=== PATIENT | male | born 1990 | race Two or more races ===

== ENCOUNTER 2020-02-24 21:45 | Inpatient (IN) | payer OTHER ==
[~2020-02-24] VITALS: Ht 175.3 cm; Wt 108.9 kg
--- NOTE | 2020-02-24 23:20 | NUR ---
NURSE NOTES: PATIENT ARRIVED TO UNIT [facility]IA [facility] ON [facility] WITH 2 PERSONNEL; TRANSFERRED TO BED WITHOUT INCIDENT. AAOX4, VERBALLY RESPONSIVE AND ABLE TO MAKE NEEDS KNOWN. PLACED ON SNAKER AND CHANGED INTO YELLOW GOWN; PATIENT REFUSES YELLOW SOCKS AT THIS TIME, DESPITE BEING EDUCATED ON FALL PREVENTION. PATIENT NOTED TO AMBULATE WITH STEADY GAIT, NO COMPLAINTS OF DIZZINESS OR WEAKNESS. PATIENT COMPLAINS OF A MIGRAINE, IN WHICH HE RATES 7/10 PAIN; INFORMED PATIENT I WILL CONTACT HIS PRIMARY MD FOR ORDERS, AND PATIENT VERBALIZED UNDERSTANDING. BREATHING IS EVEN AND UNLABORED ON ROOM AIR, NO S/SX OF DISTRESS AT THIS TIME. IV SITE ON LEFT HAND PATENT, INTACT, ASYMPTOMATIC, AND SALINE-LOCKED. BED LOCKED AND IN LOWEST POSITION, SIDERAILS UP X 2. CALL LIGHT WITHIN REACH. WILL CONTINUE TO MONITOR FOR ANY CHANGES. Addendum: 02/25/20 at 0105 by Eva Lamb RN LIGHTS DIMMED AND HOB ELEVATED TO PROVIDE SOME COMFORT/PAIN RELIEF WHILE AWAITING ADMISSION ORDERS FROM DR. PEARSON.
[2020-02-24 23:30] VITALS: BP 136/81
[2020-02-24] MEDS ORDERED: METFORMIN HCL1000 M1 ORAL (23:36)
[2020-02-24] MEDS ORDERED: LOSARTAN POTAS100 MG ORAL (23:36)
[2020-02-24] MEDS ORDERED: GLIPIZIDE10 MG PO (23:36)
--- NOTE | 2020-02-24 23:44 | NUR ---
NURSE NOTES: CONTACTED DR. PEARSON FOR ADMISSION ORDERS. AWAITING CALL BACK.
--- NOTE | 2020-02-25 00:15 | NUR ---
NURSE NOTES: COMPLETED INVENTORY LIST WITH PATIENT. HAS A CELLPHONE IN HIS POSSESSION; NO DENTURES/HEARING AIDS/ASSISTIVE DEVICES/MEDICATIONS/WALLET. INVENTORY LIST SIGNED BY PATIENT.
--- NOTE | 2020-02-25 00:27 | NUR ---
NURSE NOTES: CONTACTED DR. PEARSON A SECOND TIME FOR ADMISSION ORDERS. AWAITING CALL BACK.
--- NOTE | 2020-02-25 00:55 | NUR ---
NURSE NOTES: CONTACTED DR. PEARSON A THIRD TIME REGARDING ADMISSION ORDERS. AWAITING CALL BACK. Addendum: 02/25/20 at 0125 by Eva Lamb RN MADE [employer]GE NURS[facility]OR[facility], AWARE THAT DR. PEARSON HAS NOT YET RETURNED CALLS.
[2020-02-25] MEDS ORDERED: Nitroglycerin Subl 0.4mg tab SL PRN (03:30)
[2020-02-25] MEDS: HYDROcodone/Acetamin 5/325 tab ORAL PRN (03:43)
[2020-02-25 04:00] VITALS: BP 126/77
--- NOTE | 2020-02-25 04:00 | NUR ---
NURSE NOTES: EKG TRACING DONE. PATIENT TOLERATED WELL.
--- NOTE | 2020-02-25 06:48 | NUR ---
NURSE NOTES: CALLED DOWN TO PHARMACY REGARDING INSULIN PEN; INSULIN PEN WILL BE READY IN 5 MINUTES FOR CUSTOMER SERVICE ADVISOR.
[2020-02-25] MEDS: NovoLOG Insulin Flexpen SUBQ SCH ×4 (06:56→21:10)
--- NOTE | 2020-02-25 07:33 | NUR ---
HAND-OFF: Report given to MARC VAUGHN. PATIENT IN STABLE CONDITION. PLAN OF CARE ENDORSED.
--- NOTE | 2020-02-25 07:47 | NUR ---
NURSE NOTES: Received pt from MARC Murphy. Pt A/O x4. No s/s of acute respiratory and cardiac distress. Pt c/o migraine 5/10 pain scale. No c/o chest pain. SL on right hand, patent and intact. Bed in low position, side rails up x2 and call light within reach. Will continue to monitor. Addendum: 02/25/20 at 0756 by Aurea Marlow RN Received report from MARC Velasquez.
[2020-02-25 08:00] VITALS: BP 132/86
[2020-02-25 08:43] LABS: BASOPHILS % (AUTO) 0.9 % (0.0-2.0); EOSINOPHILS % (AUTO) 1.6 % (0.0-3.0); HEMATOCRIT 47.4 % (42.0-52.0); HEMOGLOBIN 15.8 G/DL (14.2-18.0); LYMPHOCYTES % (AUTO) 50.6 % (20.0-45.0); MEAN CORPUSCULAR VOLUME 88 FL (80-99); MONOCYTES % (AUTO) 5.1 % (1.0-10.0); NEUTROPHILS % (AUTO) 41.8 % (45.0-75.0); PLATELET COUNT 281 K/UL (150-450); RED BLOOD COUNT 5.39 M/UL (4.70-6.10); RED CELL DISTRIBUTION WIDTH 11.1 % (11.6-14.8); WHITE BLOOD COUNT 7.8 K/UL (4.8-10.8)
[2020-02-25] MEDS: Losartan 50mg tab ORAL SCH (08:55)
[2020-02-25] MEDS: Morphine Sulfate 2mg/ml Inj(IV/IM USE ONLY) IVP PRN ×2 (08:56→21:14)
[2020-02-25] MEDS: metFORMIN 500mg tab ORAL SCH ×2 (09:00→17:19)
[2020-02-25 09:17] LABS: ALANINE AMINOTRANSFERASE 72 U/L (12-78); ALBUMIN 3.5 G/DL (3.4-5.0); ALKALINE PHOSPHATASE 66 U/L (46-116); ANION GAP 9 mmol/L (5-15); ASPARTATE AMINO TRANSFERASE 34 U/L (15-37); BILIRUBIN,TOTAL 0.5 MG/DL (0.2-1.0); BLOOD UREA NITROGEN 14 mg/dL (7-18); CARBON DIOXIDE 25 MMOL/L (21-32); CHLORIDE 102 MMOL/L (98-107); CHOLESTEROL 248 MG/DL (< 200); CREATININE 0.8 MG/DL (0.55-1.30); HDL CHOLESTEROL 35 MG/DL (40-60); PHOSPHORUS 3.3 MG/DL (2.5-4.9); SODIUM 136 MMOL/L (136-145); TRIGLYCERIDES 177 MG/DL (30-150)
[2020-02-25 12:00] VITALS: BP 159/72
[2020-02-25] MEDS: DiphenhydrAMINE 50mg/ml Inj IVP PRN (14:02)
--- NOTE | 2020-02-25 15:45 | History & Physical ---
History and Physical History & Physicial Dictated for Int Med-DR Hendrickson no. [id number]. Jordon Gayle MD Feb 25, 2020 15:45
[2020-02-25 16:00] VITALS: BP 122/70
--- NOTE | 2020-02-25 17:45 | History and Physical Report ---
DATE OF ADMISSION: 02/24/2020 CHIEF COMPLAINT: Patient is a 29-year-old male, who presents with a chief complaint of chest pain. HISTORY OF PRESENT ILLNESS: Patient has a history of diabetes, diagnosed at age 26. Patient states he has had chest pain before. Patient states it was never this bad. History of present illness began on 02/24/2020. Patient began to experience chest pressure while he was eating lunch. The chest pain radiated to the left shoulder and the left jaw. Patient's girlfriend dialed 911. Patient was transported initially to [facility] emergency room. Patient is transferred to [facility] for insurance purposes. Patient is admitted for chest pain to rule out acute coronary syndrome. REVIEW OF SYSTEMS: CONSTITUTIONAL: Patient denies weight loss or weight gain. Patient denies fevers or chills. HEENT: Patient denies ear or throat pain. Patient denies headache. CARDIOVASCULAR: Patient complains of chest pain as above. Patient denies palpitations. CHEST: Patient complains of shortness of breath associated with chest pain. Patient denies wheezes. ABDOMEN: Patient denies nausea, vomiting, diarrhea, or constipation. GENITOURINARY: Patient denies dysuria or increased frequency of urination. NEUROMUSCULAR: Patient denies seizures or generalized weakness. PAST MEDICAL HISTORY: Significant for: 1. Type 2 diabetes, diagnosed at age 26. 2. Hypertension. PAST SURGICAL HISTORY: Significant for scrotal abscess incision and drainage. CURRENT MEDICATIONS: 1. NPH insulin 10 units subcutaneous at bedtime. 2. Glipizide 10 mg 2 tablets p.o. twice daily. 3. Losartan 50 mg p.o. daily. 4. Glucophage 1000 mg p.o. twice daily. ALLERGIES: To Toradol and ibuprofen. SOCIAL HISTORY: Patient is single, however, has a long-term girlfriend. Patient works in [employer]. Patient denies tobacco use. Patient admits to social alcohol use. PHYSICAL EXAMINATION: VITAL SIGNS: Temperature 99.0 degrees Fahrenheit, respirations 18, pulse 107, blood pressure 133/94. GENERAL: Patient is well-developed, well-nourished slightly obese, male, in no apparent distress. HEENT: Eyes, pupils are equal and responsive to light and accommodation. Extraocular movements are intact. NECK: Supple without lymphadenopathy. CHEST: Lungs are clear to auscultation bilaterally without wheezes or rales. CARDIOVASCULAR: Regular rate. S1, S2 are normal without murmurs, rubs, or gallops. ABDOMEN: Soft, nontender, nondistended. Positive bowel sounds. No evidence of hepatosplenomegaly. Currently, no rebound or guarding noted. EXTREMITIES: Negative for clubbing, cyanosis, or edema. RECTAL/GENITAL: Not performed. NEUROLOGICAL: Cranial nerves II through XII are grossly intact without focal deficits. Motor strength is 5/5 bilaterally. Deep tendon reflexes are 2+ plantar. LABORATORY STUDIES: WBC 9.1, hemoglobin 15.2, hematocrit 45.2, platelets 261,000. Sodium 132, potassium 4.0, chloride 100, CO2 21, BUN 13, creatinine 0.64, glucose elevated at 408. Troponin elevated at 0.15. An EKG demonstrated normal sinus rhythm. Ventricular rate was 80 beats per minute. There was a right bundle-branch block noted. Otherwise normal EKG. A chest x-ray is reported as no acute disease. ASSESSMENT: This is a 29-year-old male. 1. Chest pain. 2. Elevated troponin. 3. Diabetes type 2. 4. Hypertension. 5. Morbid obesity. 6. Right bundle-branch block. TREATMENT: 1. Chest pain/elevated troponin/right bundle-branch block. A Cardiology consultation has been obtained with Dr. Jorje Bowen. Serial troponin levels will be performed. We will follow recommendations of Cardiology. Differential includes acute coronary syndrome with risk factors including diabetes. 2. Diabetes type 2. NovoLog sliding scale has been instituted. 3. Hypertension. Continue losartan as above. 4. Morbid obesity. 5. Right bundle-branch block. Jordon Gayle M.D. DR: LAMINE JOB#: [id number] CC:
--- NOTE | 2020-02-25 19:21 | NUR ---
HAND-OFF: Report given to MARC Rea.
--- NOTE | 2020-02-25 19:40 | NUR ---
NURSE NOTES: RECEIVED PATIENT LYING IN BED, AWAKE, ALERT/ORIENTED X4, VERBALLY RESPONSIVE, SURFING ON CELL PHONE, IV INTACT RIGHT HAND/GAUGE 20, SALINE LOCK, NO REDNESS/SWELLING NOTED, DENIES PAIN, NO SIGNS AND SYMPTOMS OF ACUTE CARDIO RESPIRATORY DISTRESS/SHORTNESS OF BREATH, DENIES CHEST PAIN, NO PERIPHERAL EDEMA NOTED, CONTINUE ON HAIR ASSISTANT. ABDOMEN SOFT/ROUND/NON TENDER/AUDIBLE BOWEL SOUNDS IN ALL QUADRANTS, DENIES N/V/D. SIDE RAILS X2, BED IN LOWEST POSITION FOR SAFETY, ENCOURAGED PATIENT TO UTILIZE CALL LIGHT FOR ASSISTANCE, VERBALIZED UNDERSTANDING. CONTINUE WITH CURRENT PLAN OF CARE. NAD.
--- NOTE | 2020-02-25 19:50 | Consultation ---
History of Present Illness General Date patient seen: Feb 25, 2020 Present Illness HPI 29 year old male with hx of HTN, DM, mild obesity presented initially to [facility] with CC of left sided chest pain. After ruling out acute VA, he was transferred to [facility] for further evaluation. The pain is more pressure like and is continuous. Pt is transferred to [facility] for further management. Allergies: Coded Allergies: IBUPROFEN (Verified Allergy, Mild, HIVES, 02/25/20) KETOROLAC (Verified Allergy, Mild, HIVES, 02/25/20) NSAIDS (NON-STEROIDAL ANTI-INFLAMMA (Verified Allergy, Mild, HIVES, ) Medication History Scheduled Glipizide (Glipizide), 10 MG PO BIDAC, (Reported) Losartan Potassium (Losartan Potassium), 50 MG ORAL DAILY, (Reported) Metformin Hcl* (Metformin Hcl*), 1,000 MG ORAL BID, (Reported) Patient History Healthcare decision maker Resuscitation status Advanced Directive on File Past Medical/Surgical History Past Medical/Surgical History: (1) Mild obesity (2) History of hypertension (3) History of diabetes mellitus Review of Systems Constitutional: Reports: no symptoms Eye: Reports: discharge Respiratory: Reports: no symptoms Cardiovascular: Reports: chest pain All Other Systems: negative except mentioned in HPI Physical Exam General Appearance: WD/WN, no apparent distress, alert Lines, tubes and drains: peripheral, central line HEENT: normocephalic, atraumatic Neck: non-tender, supple Respiratory/Chest: chest wall non-tender, lungs clear Cardiovascular/Chest: normal peripheral pulses, normal rate Abdomen: normal bowel sounds, non tender Genitourinary/Rectal: normal genital exam Last 24 Hour Vital Signs Date Time Temp Pulse Resp B/P (MAP) Pulse Ox O2 Delivery O2 Flow Rate FiO2 02/25/20 16:00 79 02/25/20 16:00 97.9 80 18 122/70 (87) 98 02/25/20 12:00 83 02/25/20 12:00 98.1 81 20 159/72 (101) 98 02/25/20 09:00 Room Air 02/25/20 08:55 132/86 02/25/20 08:00 97.7 80 18 132/86 (101) 98 02/25/20 08:00 81 02/25/20 04:00 72 02/25/20 04:00 98.1 76 20 126/77 (93) 100 02/25/20 00:10 Room Air 02/25/20 00:00 80 02/24/20 23:30 97.1 79 20 136/81 (99) 99 02/24/20 23:30 89 Intake and Output 02/24/20 02/25/20 19:00 07:00 Intake Total 1000 ml Balance 1000 ml Intake Oral 1000 ml # Voids 2 Laboratory Tests Test 02/25/20 05:58 02/25/20 07:05 02/25/20 11:18 POC Whole Blood Glucose 268 MG/DL (74-106) H 250 MG/DL (74-106) H White Blood Count 7.8 K/UL (4.8-10.8) Red Blood Count 5.39 M/UL (4.70-6.10) Hemoglobin 15.8 G/DL (14.2-18.0) Hematocrit 47.4 % (42.0-52.0) Mean Corpuscular Volume 88 FL (80-99) Mean Corpuscular Hemoglobin 29.4 PG (27.0-31.0) Mean Corpuscular Hemoglobin Concent 33.4 G/DL (32.0-36.0) Red Cell Distribution Width 11.1 % (11.6-14.8) L Platelet Count 281 K/UL (150-450) Mean Platelet Volume 6.9 FL (6.5-10.1) Neutrophils (%) (Auto) 41.8 % (45.0-75.0) L Lymphocytes (%) (Auto) 50.6 % (20.0-45.0) H Monocytes (%) (Auto) 5.1 % (1.0-10.0) Eosinophils (%) (Auto) 1.6 % (0.0-3.0) Basophils (%) (Auto) 0.9 % (0.0-2.0) Sodium Level 136 MMOL/L (136-145) Potassium Level 4.0 MMOL/L (3.5-5.1) Chloride Level 102 MMOL/L (98-107) Carbon Dioxide Level 25 MMOL/L (21-32) Anion Gap 9 mmol/L (5-15) Blood Urea Nitrogen 14 mg/dL (7-18) Creatinine 0.8 MG/DL (0.55-1.30) Estimat Glomerular Filtration Rate > 60 mL/min (>60) Glucose Level 267 MG/DL (74-106) H Hemoglobin A1c 10.7 % (4.3-6.0) H Calcium Level 9.0 MG/DL (8.5-10.1) Phosphorus Level 3.3 MG/DL (2.5-4.9) Magnesium Level 1.7 MG/DL (1.8-2.4) L Total Bilirubin 0.5 MG/DL (0.2-1.0) Aspartate Amino Transf (AST/SGOT) 34 U/L (15-37) Alanine Aminotransferase (ALT/SGPT) 72 U/L (12-78) Alkaline Phosphatase 66 U/L (46-116) Troponin I 0.000 ng/mL (0.000-0.056) Total Protein 7.0 G/DL (6.4-8.2) Albumin 3.5 G/DL (3.4-5.0) Globulin 3.5 g/dL Albumin/Globulin Ratio 1.0 (1.0-2.7) Triglycerides Level 177 MG/DL (30-150) H Cholesterol Level 248 MG/DL (< 200) H LDL Cholesterol 196 mg/dL (<100) H HDL Cholesterol 35 MG/DL (40-60) L Cholesterol/HDL Ratio 7.1 (3.3-4.4) H Height (Feet): 5 Height (Inches): 9.00 Weight (Pounds): 253 Medications Current Medications Medications (Trade) Dose Ordered Sig/Sonny Route PRN Reason Start Time Stop Time Status Last Admin Dose Admin Acetaminophen (Tylenol) 650 mg Q6H PRN ORAL Mild Pain (Pain Scale 1-3) 02/25/20 03:30 03/26/20 03:29 Acetaminophen/ Hydrocodone Bitart ([place] 5/325) 1 tab Q6H PRN ORAL Moderate Pain (Pain Scale 4-6) 02/25/20 03:30 03/03/20 03:29 02/25/20 03:43 Dextrose (Dextrose 50%) 25 ml Q30M PRN IV Hypoglycemia 02/25/20 03:30 05/25/20 03:29 Dextrose (Dextrose 50%) 50 ml Q30M PRN IV Hypoglycemia 02/25/20 03:30 05/25/20 03:29 Diphenhydramine HCl (Benadryl) 25 mg Q4HR PRN IVP Itching 02/25/20 13:30 03/26/20 13:29 02/25/20 14:02 Insulin Aspart (NovoLOG) BEFORE MEALS AND HS SUBQ 02/25/20 06:30 05/25/20 06:29 02/25/20 16:39 Losartan Potassium (Cozaar) 50 mg DAILY ORAL 02/25/20 09:00 03/26/20 08:59 02/25/20 08:55 Metformin HCl (Glucophage) 1,000 mg BID ORAL 02/25/20 09:00 03/26/20 08:59 02/25/20 17:19 Morphine Sulfate (Morphine Sulfate) 2 mg Q4H PRN IVP Severe Pain (Pain Scale 7-10) 02/25/20 03:30 03/03/20 03:29 02/25/20 08:56 Nitroglycerin (Ntg) 0.4 mg Q5M PRN SL Prn Chest Pain 02/25/20 03:30 03/26/20 03:29 Ondansetron HCl (Zofran) 4 mg Q6H PRN IVP Nausea & Vomiting 02/25/20 03:30 03/26/20 03:29 Assessment/Plan Problem List: (1) ACS (acute coronary syndrome) ICD Codes: I24.9 - Acute ischemic heart disease, unspecified SNOMED: 917833685 (2) History of hypertension ICD Codes: Z86.79 - Personal history of other diseases of the circulatory system SNOMED: 723127739 (3) History of diabetes mellitus ICD Codes: Z86.39 - Personal history of other endocrine, nutritional and metabolic disease SNOMED: 913982652 (4) Mild obesity ICD Codes: E66.9 - Obesity, unspecified SNOMED: 660477057 Assessment/Plan: serial ekg, troponin, echo symptomatic treatment cardiology to see dvt prophylaxis monitor BP sliding scale diabetic diet Chucky Carpenter MD Feb 25, 2020 19:50
[2020-02-25 20:00] VITALS: BP 139/89
[2020-02-26] VITALS: BP 121/81
--- NOTE | 2020-02-26 02:19 | NUR ---
NURSE NOTES: RESTING WELL, NAD.
[2020-02-26 04:00] VITALS: BP 140/88
[2020-02-26] MEDS: DiphenhydrAMINE 50mg/ml Inj IVP PRN ×3 (04:08→20:17)
[2020-02-26] MEDS: NovoLOG Insulin Flexpen SUBQ SCH ×4 (06:18→20:08)
--- NOTE | 2020-02-26 06:25 | NUR ---
NURSE NOTES: RESTED WELL, NO SIGNIFICANT CHANGE OF CONDITION NOTED THROUGHOUT THE NIGHT. SAFETY MAINTAINED. NAD.
--- NOTE | 2020-02-26 07:30 | NUR ---
NURSE NOTES: Received patient in bed awake. No SOB or acute distress. IV line intact. Complaining of headache 11/09. HOB elevated. Bed locked in lowest position. Call light within reach. Will continue plan of care.
[2020-02-26 08:00] VITALS: BP 124/72
[2020-02-26] MEDS: metFORMIN 500mg tab ORAL SCH ×2 (08:50→17:15)
[2020-02-26] MEDS: Losartan 50mg tab ORAL SCH (08:51)
[2020-02-26 09:03] LABS: EOSINOPHILS % (AUTO) 1.5 % (0.0-3.0); HEMATOCRIT 50.3 % (42.0-52.0); HEMOGLOBIN 16.8 G/DL (14.2-18.0); LYMPHOCYTES % (AUTO) 40.8 % (20.0-45.0); MEAN CORPUSCULAR VOLUME 87 FL (80-99); MONOCYTES % (AUTO) 5.1 % (1.0-10.0); NEUTROPHILS % (AUTO) 51.6 % (45.0-75.0); PLATELET COUNT 295 K/UL (150-450); RED BLOOD COUNT 5.76 M/UL (4.70-6.10); RED CELL DISTRIBUTION WIDTH 10.8 % (11.6-14.8); WHITE BLOOD COUNT 7.8 K/UL (4.8-10.8)
[2020-02-26 09:42] LABS: ALANINE AMINOTRANSFERASE 77 U/L (12-78); ALBUMIN/GLOBULIN RATIO 1.2 (1.0-2.7); ALKALINE PHOSPHATASE 67 U/L (46-116); ANION GAP 7 mmol/L (5-15); ASPARTATE AMINO TRANSFERASE 43 U/L (15-37); BILIRUBIN,TOTAL 0.6 MG/DL (0.2-1.0); BLOOD UREA NITROGEN 16 mg/dL (7-18); CALCIUM 9.7 MG/DL (8.5-10.1); CARBON DIOXIDE 29 MMOL/L (21-32); CHLORIDE 101 MMOL/L (98-107); CREATININE 0.7 MG/DL (0.55-1.30); PHOSPHORUS 3.3 MG/DL (2.5-4.9); POTASSIUM 4.3 MMOL/L (3.5-5.1); SODIUM 136 MMOL/L (136-145)
--- NOTE | 2020-02-26 09:56 | NUR ---
CASE MANAGEMENT:REVIEW DIRECT ADMIT FROM KENNEDY CC: CHEST PAIN SI: CHEST PAIN.RBBB. DM. HTN 97.1 89 20 136/81 99% ON RA GLUCOSE+267 MAG-1.7 IS: COZAAR PO QD METFORMIN PO BID SS INSULIN AC+HS NORCO PO Q6HRS PRN IV MORPHINE Q4HRS PRN : TELEMETRY STATUS PLAN: SERIAL TROPONIN CARDIAC CONSULT 2DECHO
--- NOTE | 2020-02-26 10:12 | NUR ---
NURSE NOTES: Complained of headache 4/10 this morning. Refused tylenol and requested benadryl, said it helps with his migraines.
[2020-02-26 11:21] VITALS: BP 133/88
[2020-02-26] MEDS: Morphine Sulfate 2mg/ml Inj(IV/IM USE ONLY) IVP PRN (13:04)
[2020-02-26 16:00] VITALS: BP 118/75
--- NOTE | 2020-02-26 19:05 | Internal Med Progress Note ---
Subjective Date of Service: Feb 26, 2020 Physician Name Jordon Gayle Attending Physician Hector Hendrickson MD Current Medications Medications (Trade) Dose Ordered Sig/Sonny Route PRN Reason Start Time Stop Time Status Last Admin Dose Admin Acetaminophen (Tylenol) 650 mg Q6H PRN ORAL Mild Pain (Pain Scale 1-3) 02/25/20 03:30 03/26/20 03:29 Acetaminophen/ Hydrocodone Bitart ([place] 5/325) 1 tab Q6H PRN ORAL Moderate Pain (Pain Scale 4-6) 02/25/20 03:30 03/03/20 03:29 02/25/20 03:43 Dextrose (Dextrose 50%) 25 ml Q30M PRN IV Hypoglycemia 02/25/20 03:30 05/25/20 03:29 Dextrose (Dextrose 50%) 50 ml Q30M PRN IV Hypoglycemia 02/25/20 03:30 05/25/20 03:29 Diphenhydramine HCl (Benadryl) 25 mg Q4HR PRN IVP Itching 02/25/20 13:30 03/26/20 13:29 02/26/20 08:58 Insulin Aspart (NovoLOG) BEFORE MEALS AND HS SUBQ 02/25/20 06:30 05/25/20 06:29 02/26/20 17:16 Losartan Potassium (Cozaar) 50 mg DAILY ORAL 02/25/20 09:00 03/26/20 08:59 02/26/20 08:51 Metformin HCl (Glucophage) 1,000 mg BID ORAL 02/25/20 09:00 03/26/20 08:59 02/26/20 17:15 Morphine Sulfate (Morphine Sulfate) 2 mg Q4H PRN IVP Severe Pain (Pain Scale 7-10) 02/25/20 03:30 03/03/20 03:29 02/26/20 13:04 Nitroglycerin (Ntg) 0.4 mg Q5M PRN SL Prn Chest Pain 02/25/20 03:30 03/26/20 03:29 Ondansetron HCl (Zofran) 4 mg Q6H PRN IVP Nausea & Vomiting 02/25/20 03:30 03/26/20 03:29 Allergies: Coded Allergies: IBUPROFEN (Verified Allergy, Mild, HIVES, 02/25/20) KETOROLAC (Verified Allergy, Mild, HIVES, 02/25/20) NSAIDS (NON-STEROIDAL ANTI-INFLAMMA (Verified Allergy, Mild, HIVES, ) ROS Limited/Unobtainable: No Constitutional: Reports: no symptoms HEENT: Reports: no symptoms Cardiovascular: Reports: chest pain Respiratory: Reports: no symptoms Gastrointestinal/Abdominal: Reports: no symptoms Genitourinary: Reports: no symptoms Neurologic/Psychiatric: Reports: no symptoms Subjective 29 YO M admitted with chest pain. Cover for Int Usman-Dr Hendrickson Objective Last Vital Signs Date Time Temp Pulse Resp B/P (MAP) Pulse Ox O2 Delivery O2 Flow Rate FiO2 02/26/20 16:00 101 02/26/20 16:00 98.2 18 118/75 (89) 98 02/26/20 09:00 Room Air Laboratory Tests Test 02/26/20 08:35 02/26/20 11:09 White Blood Count 7.8 K/UL (4.8-10.8) Red Blood Count 5.76 M/UL (4.70-6.10) Hemoglobin 16.8 G/DL (14.2-18.0) Hematocrit 50.3 % (42.0-52.0) Mean Corpuscular Volume 87 FL (80-99) Mean Corpuscular Hemoglobin 29.2 PG (27.0-31.0) Mean Corpuscular Hemoglobin Concent 33.4 G/DL (32.0-36.0) Red Cell Distribution Width 10.8 % (11.6-14.8) L Platelet Count 295 K/UL (150-450) Mean Platelet Volume 6.9 FL (6.5-10.1) Neutrophils (%) (Auto) 51.6 % (45.0-75.0) Lymphocytes (%) (Auto) 40.8 % (20.0-45.0) Monocytes (%) (Auto) 5.1 % (1.0-10.0) Eosinophils (%) (Auto) 1.5 % (0.0-3.0) Basophils (%) (Auto) 1.0 % (0.0-2.0) Erythrocyte Sedimentation Rate 9 MM/HR (0-15) Sodium Level 136 MMOL/L (136-145) Potassium Level 4.3 MMOL/L (3.5-5.1) Chloride Level 101 MMOL/L (98-107) Carbon Dioxide Level 29 MMOL/L (21-32) Anion Gap 7 mmol/L (5-15) Blood Urea Nitrogen 16 mg/dL (7-18) Creatinine 0.7 MG/DL (0.55-1.30) Estimat Glomerular Filtration Rate > 60 mL/min (>60) Glucose Level 235 MG/DL (74-106) H Calcium Level 9.7 MG/DL (8.5-10.1) Phosphorus Level 3.3 MG/DL (2.5-4.9) Magnesium Level 1.8 MG/DL (1.8-2.4) Total Bilirubin 0.6 MG/DL (0.2-1.0) Aspartate Amino Transf (AST/SGOT) 43 U/L (15-37) H Alanine Aminotransferase (ALT/SGPT) 77 U/L (12-78) Alkaline Phosphatase 67 U/L (46-116) Troponin I 0.000 ng/mL (0.000-0.056) Total Protein 7.3 G/DL (6.4-8.2) Albumin 4.0 G/DL (3.4-5.0) Globulin 3.3 g/dL Albumin/Globulin Ratio 1.2 (1.0-2.7) POC Whole Blood Glucose 241 MG/DL (74-106) H Intake and Output 02/25/20 02/26/20 19:00 07:00 Intake Total 240 ml 600 ml Balance 240 ml 600 ml Intake Oral 240 ml 600 ml # Voids 4 3 Objective PHYSICAL EXAMINATION: GENERAL: Patient is well-developed, well-nourished slightly obese, male, in no apparent distress. HEENT: Eyes, pupils are equal and responsive to light and accommodation. Extraocular movements are intact. NECK: Supple without lymphadenopathy. CHEST: Lungs are clear to auscultation bilaterally without wheezes or rales. CARDIOVASCULAR: Regular rate. S1, S2 are normal without murmurs, rubs, or gallops. ABDOMEN: Soft, nontender, nondistended. Positive bowel sounds. No evidence of hepatosplenomegaly. Currently, no rebound or guarding noted. EXTREMITIES: Negative for clubbing, cyanosis, or edema. RECTAL/GENITAL: Not performed. NEUROLOGICAL: Cranial nerves II through XII are grossly intact without focal deficits. Motor strength is 5/5 bilaterally. Deep tendon reflexes are 2+ plantar. Assessment/Plan Assessment/Plan ASSESSMENT: This is a 29-year-old male. 1. Chest pain. 2. Elevated troponin. 3. Diabetes type 2. 4. Hypertension. 5. Morbid obesity. 6. Right bundle-branch block. TREATMENT: 1. Chest pain/elevated troponin/right bundle-branch block. A Cardiology consultation has been obtained with Dr. Jorje Bowen. Serial troponin levels will be performed. We will follow recommendations of Cardiology. Differential includes acute coronary syndrome with risk factors including diabetes. 2. Diabetes type 2. NovoLog sliding scale has been instituted. 3. Hypertension. Continue losartan as above. 4. Morbid obesity. 5. Right bundle-branch block. Jordon Gayle MD Feb 26, 2020 19:05
--- NOTE | 2020-02-26 19:37 | NUR ---
HAND-OFF: Report given to Krissy TRAN.
--- NOTE | 2020-02-26 19:38 | NUR ---
NURSE NOTES: Received hand-off report from MARC Zhang. Patient in bed resting, semi-fowlers position. Call light within reach, bed in lowest and locked position, bed alarm on, shelter monitor in place. Breathing unlabored and even, alert and oriented x3.
[2020-02-26 20:00] VITALS: BP 133/85
[2020-02-26] MEDS: HYDROcodone/Acetamin 5/325 tab ORAL PRN (20:10)
--- NOTE | 2020-02-26 22:00 | NUR ---
NURSE NOTES: Collected and delivered urine culture, urinalysis sample, and occult blood stool samples to the lab.
--- NOTE | 2020-02-26 22:07 | NUR ---
NURSE NOTES: Notified Dr. Bowen regarding ST with PVC and BBB. Awaiting any potential orders.
[2020-02-27] VITALS (11 sets, daily range): BP systolic 110–149; BP diastolic 67–93
[2020-02-27 05:26] LABS: BASOPHILS % (AUTO) 0.8 % (0.0-2.0); EOSINOPHILS % (AUTO) 1.7 % (0.0-3.0); HEMATOCRIT 49.7 % (42.0-52.0); HEMOGLOBIN 16.6 G/DL (14.2-18.0); LYMPHOCYTES % (AUTO) 42.6 % (20.0-45.0); MEAN CORPUSCULAR VOLUME 88 FL (80-99); MONOCYTES % (AUTO) 5.4 % (1.0-10.0); NEUTROPHILS % (AUTO) 49.5 % (45.0-75.0); PLATELET COUNT 262 K/UL (150-450); RED BLOOD COUNT 5.67 M/UL (4.70-6.10); RED CELL DISTRIBUTION WIDTH 10.8 % (11.6-14.8); WHITE BLOOD COUNT 8.3 K/UL (4.8-10.8)
[2020-02-27 05:37] LABS: ANION GAP 7 mmol/L (5-15); BLOOD UREA NITROGEN 18 mg/dL (7-18); CALCIUM 9.3 MG/DL (8.5-10.1); CARBON DIOXIDE 26 MMOL/L (21-32); CHLORIDE 102 MMOL/L (98-107); CREATININE 0.8 MG/DL (0.55-1.30); SODIUM 135 MMOL/L (136-145)
[2020-02-27] MEDS: NovoLOG Insulin Flexpen SUBQ SCH ×4 (05:40→21:00)
[2020-02-27] MEDS: Morphine Sulfate 2mg/ml Inj(IV/IM USE ONLY) IVP PRN ×3 (05:53→21:10)
[2020-02-27] MEDS: GlipiZIDE 5mg tab ORAL SCH ×2 (06:44→17:08)
[2020-02-27] MEDS: DiphenhydrAMINE 50mg/ml Inj IVP PRN ×3 (06:52→22:15)
--- NOTE | 2020-02-27 07:10 | NUR ---
HAND-OFF: Report given to MARC Shoemaker. Plan of care endorsed. Patient in stable condition. Vital signs are stable. No changes in LOC.
--- NOTE | 2020-02-27 07:26 | NUR ---
NURSE NOTES: Received report from MARC Rey. Patient in bed resting, no active s/s cardiac, respiratory distress noticed at this time. Patient AOx4, on room air, SR with BBB with HR 82. Patient denies chest pain and decreased in headache at this time. IV on left hand 20G, asymptomatic, patent, intact. Bed in lowest position and locked, side rails upx2, call light within reach, bed alarm on. Will continue to monitor.
--- NOTE | 2020-02-27 07:45 | Consultation ---
DATE OF CONSULTATION: 02/27/2020 ENDOCRINOLOGY CONSULTATION CONSULTING PHYSICIAN: Bala Daily MD. REFERRING PHYSICIAN: Hector Hendrickson MD. REASON FOR CONSULTATION: Diabetes management. HISTORY OF PRESENT ILLNESS: Patient is a 29-year-old male with history of diabetes, on metformin and glipizide as an outpatient, who presented to the hospital with a chief complaint of chest pain. The patient's glucose was elevated. Therefore, Endocrinology was consulted. The chest pain was also radiating to the left shoulder and the left jaw. Girlfriend called 911. Initially was transferred to the [facility] and then stabilized and transferred to [facility]. PAST MEDICAL HISTORY: 1. Type 2 diabetes since the age of 26. 2. Hypertension. PAST SURGICAL HISTORY: Scrotal abscess incision and drainage. MEDICATIONS AN OUTPATIENT: 1. Metformin 1000 mg b.i.d. 2. Glipizide 10 mg 2 tablets b.i.d. 3. Losartan 50 mg daily. 4. NPH 10 units at bedtime. ALLERGIES TO MEDICATIONS: Tylenol and ibuprofen. SOCIAL HISTORY: Patient is single. Works in [employer]. No smoking, alcohol, or drug use. REVIEW OF SYSTEMS: As per HPI. LABORATORY DATA: A1c 10.7. Sodium 135, potassium 4.0, chloride 102, bicarb 26, BUN 18, creatinine 0.8, glucose of 233. FAMILY HISTORY: Noncontributory. PHYSICAL EXAMINATION: VITAL SIGNS: Blood pressure is 122/77, heart rate 83, respiratory rate of 18, temperature 97. HEENT: Pupils are equal and reactive to light. Sclerae nonicteric. NECK: No JVD. HEART: Regular. LUNGS: Clear. ABDOMEN: Positive bowel sounds. EXTREMITIES: No clubbing, cyanosis, or edema. DIAGNOSES: 1. Chest pain, rule out acute coronary syndrome. 2. Diabetes, out of control. 3. Hypertension. 4. Obesity. PLAN: 1. Metformin 1000 mg b.i.d. 2. Glipizide 5 mg b.i.d. 3. Januvia 100 mg daily. 4. NovoLog sliding scale before meals and at bedtime. 5. Cardiology consultation pending. 6. Further adjustment according to blood glucose values. I will follow the patient during hospital stay. Thank you, Dr. Hendrickson, for the courtesy of this consultation. Bala Daily M.D. DR: BRUCE JOB#: [id number] CC: JOLLY
--- NOTE | 2020-02-27 07:48 | Pulmonology Progress Note ---
Subjective ROS Limited/Unobtainable: No Allergies: Coded Allergies: IBUPROFEN (Verified Allergy, Mild, HIVES, 02/25/20) KETOROLAC (Verified Allergy, Mild, HIVES, 02/25/20) NSAIDS (NON-STEROIDAL ANTI-INFLAMMA (Verified Allergy, Mild, HIVES, ) Subjective no CP, but some discomfort in chest area pulse ox stable on RA Objective Last 24 Hour Vital Signs Date Time Temp Pulse Resp B/P (MAP) Pulse Ox O2 Delivery O2 Flow Rate FiO2 02/27/20 04:00 82 02/27/20 00:00 83 02/27/20 00:00 97.0 83 18 122/77 (92) 99 02/26/20 21:00 Room Air 02/26/20 20:00 107 02/26/20 20:00 97.9 107 19 133/85 (101) 96 02/26/20 16:00 101 02/26/20 16:00 98.2 94 18 118/75 (89) 98 02/26/20 12:00 98 02/26/20 11:21 98.1 96 18 133/88 (103) 99 02/26/20 09:00 Room Air 02/26/20 08:51 124/72 02/26/20 08:00 97.9 68 18 124/72 (89) 98 02/26/20 08:00 77 Intake and Output 02/26/20 02/27/20 19:00 07:00 # Voids 2 # Bowel Movements 1 General Appearance: other - young obese male in [facility] HEENT: normocephalic, atraumatic, anicteric, mucous membranes moist, PERRL Respiratory: lungs clear, no respiratory distress, no accessory muscle use Cardiovascular: normal rate, regular rhythm Abdomen: soft, non tender - obese Extremities: no edema Skin: no lesions, no ulcers Neurologic: 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 grader 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 grossly normal, no motor/sensory deficits, alert, oriented x 3, responsive Musculoskeletal: normal muscle bulk Laboratory Tests 02/26/20 08:35: White Blood Count 7.8, Red Blood Count 5.76, Hemoglobin 16.8, Hematocrit 50.3, Mean Corpuscular Volume 87, Mean Corpuscular Hemoglobin 29.2, Mean Corpuscular Hemoglobin Concent 33.4, Red Cell Distribution Width 10.8L, Platelet Count 295, Mean Platelet Volume 6.9, Neutrophils (%) (Auto) 51.6, Lymphocytes (%) (Auto) 40.8, Monocytes (%) (Auto) 5.1, Eosinophils (%) (Auto) 1.5, Basophils (%) (Auto ) 1.0, Erythrocyte Sedimentation Rate 9, Sodium Level 136, Potassium Level 4.3, Chloride Level 101, Carbon Dioxide Level 29, Anion Gap 7, Blood Urea Nitrogen 16 , Creatinine 0.7, Estimat Glomerular Filtration Rate > 60, Glucose Level 235H, Calcium Level 9.7, Phosphorus Level 3.3, Magnesium Level 1.8, Total Bilirubin 0.6, Aspartate Amino Transf (AST/SGOT) 43H, Alanine Aminotransferase (ALT/SGPT) 77, Alkaline Phosphatase 67, Troponin I 0.000, Total Protein 7.3, Albumin 4.0, Globulin 3.3, Albumin/Globulin Ratio 1.2 02/26/20 11:09: POC Whole Blood Glucose 241H 02/27/20 05:00: White Blood Count 8.3, Red Blood Count 5.67, Hemoglobin 16.6, Hematocrit 49.7, Mean Corpuscular Volume 88, Mean Corpuscular Hemoglobin 29.3, Mean Corpuscular Hemoglobin Concent 33.5, Red Cell Distribution Width 10.8L, Platelet Count 262, Mean Platelet Volume 6.3L, Neutrophils (%) (Auto) 49.5, Lymphocytes (%) (Auto) 42.6, Monocytes (%) (Auto) 5.4, Eosinophils (%) (Auto) 1.7, Basophils (%) (Auto ) 0.8, Sodium Level 135L, Potassium Level 4.0, Chloride Level 102, Carbon Dioxide Level 26, Anion Gap 7, Blood Urea Nitrogen 18, Creatinine 0.8, Estimat Glomerular Filtration Rate > 60, Glucose Level 233H, Calcium Level 9.3 Current Medications Medications (Trade) Dose Ordered Sig/Sonny Route PRN Reason Start Time Stop Time Status Last Admin Dose Admin Acetaminophen (Tylenol) 650 mg Q6H PRN ORAL Mild Pain (Pain Scale 1-3) 02/25/20 03:30 03/26/20 03:29 Acetaminophen/ Hydrocodone Bitart ([place] 5/325) 1 tab Q6H PRN ORAL Moderate Pain (Pain Scale 4-6) 02/25/20 03:30 03/03/20 03:29 02/26/20 20:10 Dextrose (Dextrose 50%) 25 ml Q30M PRN IV Hypoglycemia 02/25/20 03:30 05/25/20 03:29 Dextrose (Dextrose 50%) 50 ml Q30M PRN IV Hypoglycemia 02/25/20 03:30 05/25/20 03:29 Diphenhydramine HCl (Benadryl) 25 mg Q4HR PRN IVP Itching 02/25/20 13:30 03/26/20 13:29 02/27/20 06:52 Glipizide (Glucotrol) 5 mg BIAC ORAL 02/27/20 06:30 03/28/20 06:29 02/27/20 06:44 Insulin Aspart (NovoLOG) BEFORE MEALS AND HS SUBQ 02/25/20 06:30 05/25/20 06:29 02/27/20 05:40 Losartan Potassium (Cozaar) 50 mg DAILY ORAL 02/25/20 09:00 03/26/20 08:59 02/26/20 08:51 Metformin HCl (Glucophage) 1,000 mg BID ORAL 02/25/20 09:00 03/26/20 08:59 02/26/20 17:15 Morphine Sulfate (Morphine Sulfate) 2 mg Q4H PRN IVP Severe Pain (Pain Scale 7-10) 02/25/20 03:30 03/03/20 03:29 02/27/20 05:53 Nitroglycerin (Ntg) 0.4 mg Q5M PRN SL Prn Chest Pain 02/25/20 03:30 03/26/20 03:29 Ondansetron HCl (Zofran) 4 mg Q6H PRN IVP Nausea & Vomiting 02/25/20 03:30 03/26/20 03:29 Sitagliptin Phosphate (Januvia) 100 mg ACBREAKFAST ORAL 02/27/20 06:30 03/28/20 06:29 02/27/20 06:43 Assessment/Plan Assessment/Plan ASSESSMENT CP Elevated troponin Right BBB HTN DM OOC Morbid obesity PLAN OF CARE tele serial troponin x2 at [facility] NGT Echo with pEF 55%, no evidence of WMA to the extent visualized no LVH cardio eval pending DVT prophylaxis supplemental O2 PRN to keep sat above 92 % BP management with ARB BS management with Januvia , glipizide and SSI diabetic diet and diabetic teaching hemoglobin A1c 10.7 not at goal optimize treatment and encourage compliance probably can be dc after cardio eval case discussed and evaluated by supervising physician Karley Nguyen NP Feb 27, 2020 07:48
[2020-02-27] MEDS: Losartan 50mg tab ORAL SCH (08:13)
[2020-02-27] MEDS: metFORMIN 500mg tab ORAL SCH ×2 (08:13→17:08)
--- NOTE | 2020-02-27 10:49 | NUR ---
NURSE NOTES: Paged Dr. Bowen regarding clearance. Per MD will come to see the patient around [phone]. No new order received at this time.
--- NOTE | 2020-02-27 13:17 | NUR ---
CASE MANAGEMENT:REVIEW 02/27/20 SI: CHEST PAIN. RBBB. HTN 97.5 79 20 134/77 100% ON RA GLUCOSE+233 IS: JANUVIA PO QAM GLIPIZIDE PO BID COZAAR PO QD METFORMIN PO BID SS INSULIN AC+HS IV MORPHINE Q4HRS PRN : TELEMETRY STATUS DCP: FROM HOME
--- NOTE | 2020-02-27 13:22 | NUR ---
DISCHARGE PLANNING WAITING FOR CARDIAC CLEARANCE BEFORE DISCHARGING HOME
--- NOTE | 2020-02-27 14:03 | Cardiology Progress Note ---
Assessment/Plan Assessment/Plan orthostatic tachy chronic poor diabetic control dm obesity hyperlipidemia rbbb importance of compliance d/w pt d dier was low at [place] unlikely dvt pe all torp neg volume repletion ivh start statin reportedly cath at [place] 2015 neg per pt deneis any fh of prematuer cad [id number] Objective Last 24 Hour Vital Signs Date Time Temp Pulse Resp B/P (MAP) Pulse Ox O2 Delivery O2 Flow Rate FiO2 02/27/20 12:00 97.9 109 20 134/87 (103) 98 02/27/20 12:00 106 02/27/20 09:00 Room Air 02/27/20 08:13 134/77 02/27/20 08:00 79 02/27/20 08:00 97.5 82 20 134/77 (96) 100 02/27/20 04:00 82 02/27/20 00:00 83 02/27/20 00:00 97.0 83 18 122/77 (92) 99 02/26/20 21:00 Room Air 02/26/20 20:00 107 02/26/20 20:00 97.9 107 19 133/85 (101) 96 02/26/20 16:00 101 02/26/20 16:00 98.2 94 18 118/75 (89) 98 Intake and Output 02/26/20 02/27/20 19:00 07:00 # Voids 2 # Bowel Movements 1 Laboratory Tests Test 02/27/20 05:00 White Blood Count 8.3 K/UL (4.8-10.8) Red Blood Count 5.67 M/UL (4.70-6.10) Hemoglobin 16.6 G/DL (14.2-18.0) Hematocrit 49.7 % (42.0-52.0) Mean Corpuscular Volume 88 FL (80-99) Mean Corpuscular Hemoglobin 29.3 PG (27.0-31.0) Mean Corpuscular Hemoglobin Concent 33.5 G/DL (32.0-36.0) Red Cell Distribution Width 10.8 % (11.6-14.8) L Platelet Count 262 K/UL (150-450) Mean Platelet Volume 6.3 FL (6.5-10.1) L Neutrophils (%) (Auto) 49.5 % (45.0-75.0) Lymphocytes (%) (Auto) 42.6 % (20.0-45.0) Monocytes (%) (Auto) 5.4 % (1.0-10.0) Eosinophils (%) (Auto) 1.7 % (0.0-3.0) Basophils (%) (Auto) 0.8 % (0.0-2.0) Sodium Level 135 MMOL/L (136-145) L Potassium Level 4.0 MMOL/L (3.5-5.1) Chloride Level 102 MMOL/L (98-107) Carbon Dioxide Level 26 MMOL/L (21-32) Anion Gap 7 mmol/L (5-15) Blood Urea Nitrogen 18 mg/dL (7-18) Creatinine 0.8 MG/DL (0.55-1.30) Estimat Glomerular Filtration Rate > 60 mL/min (>60) Glucose Level 233 MG/DL (74-106) H Calcium Level 9.3 MG/DL (8.5-10.1) Jorje Bowen MD Feb 27, 2020 14:03
--- NOTE | 2020-02-27 14:31 | NUR ---
INSURANCE CLINICALS AND REVIEWS FAXED TO [employer] T: [phone] [id number] F: [phone] Addendum: 02/27/20 at 1433 by NELLY SOLORZANO LVN LVN REF # [id number]
--- NOTE | 2020-02-27 16:00 | NUR ---
NURSE NOTES: Per Dr. Gayle, patient will not be discharged today.
--- NOTE | 2020-02-27 16:15 | Consultation ---
DATE OF CONSULTATION: 02/27/2020 CARDIOLOGY CONSULTATION CONSULTING PHYSICIAN: Jorje Bowen MD. REFERRING PHYSICIAN: Hector Hendrickson MD. REASON FOR REFERRAL: Chest pain. HISTORY OF PRESENT ILLNESS: This is a 29-year-old gentleman who presented to the hospital because of episodes of shortness of breath and tightness in the chest started on Wednesday. He had a similar episode apparently a few years ago in 2014 for which he underwent cardiac catheterization according to himself and that catheterization did not show any significant disease according to the patient and this restarted again this Wednesday and he feels that he cannot take a deep enough breath and some tightness in his breath and tightness in the chest. There is no relieving or exacerbating factors and the discomfort is present most of the time. There is no PND, uses one pillow. There is no palpitations. Usually, he is not lightheaded or dizzy, although at the time of arrival when we did some orthostatic vitals, he indicated he had some dizziness at that time. PAST MEDICAL HISTORY: Positive for history of diabetes and fatty liver. No history of heart attack. He has had a history of chest pain as mentioned with reported history of cardiac catheterization. No high blood pressure. No cholesterol. No heart attack. No cancer, stroke, hepatitis, tuberculosis, asthma, or emphysema. No ulcers. No kidney problems, thyroid problems, anemia, arthritis, HIV, AIDS, or blood clots. He has a history of headaches as well as syncope and scrotal abscess on prior occasions. MEDICATIONS: His medications at home include Glucophage and glipizide although his chart indicates he is also on Cozaar, he denied that to me. ALLERGIES: He is allergic to Toradol and ibuprofen. SOCIAL HISTORY: Rare cigar smoking. No tobacco. No drugs. No alcohol. 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 REVIEW OF SYSTEMS: GASTROINTESTINAL: He denies. GENITOURINARY: He denies. PULMONARY: He denies. CONSTITUTIONAL: He denies. NEUROLOGICAL: He denies. PHYSICAL EXAMINATION: GENERAL: Shows to be overweight young gentleman, in no respiratory distress. NECK: Supple. No jugular venous distention. LUNGS: Clear to auscultation and percussion, but he takes shallow breaths. CARDIAC: Regular rate and rhythm. No heaves, thrills, gallops, or rubs are noted. ABDOMEN: Soft, nontender. Positive bowel sounds. EXTREMITIES: He has a large lesion scar on his right foot just lateral to the palomares. Otherwise, no edema, no clubbing, no cyanosis. LABORATORY VALUES: He was initially taken to the emergency room at [facility] and from there he was transferred to [facility] because of insurance reasons. His laboratories over at [place] initially when he first presented were white count 9.1, hemoglobin 15.2, and platelet count 261. His blood sugar was 408, his sodium is 132, potassium 4, chloride 100, bicarb 21, BUN of 13, creatinine 0.4, and D-dimer 0.15. Chest x-ray was performed showed lungs are clear. No pleural effusions are seen. This is from 02/24/2020. SARS COVID test was negative at [place]. His hemoglobin was 15.2 and platelet count of 261. Reported EKG from [place] shows normal sinus rhythm, normal intervals, no acute QRS changes, no acute ST-T wave abnormalities, right bundle-branch conduction defect. His most recent telemetry data shows episodes of sinus tachycardia at rates up to 157 at the time that he was using the restroom and otherwise when he stood up, heart rate of 140s. EKG shows sinus tachycardia with right bundle-branch conduction defect. Premature ventricular complexes is noted. Secondary ST-segment secondary to right bundle-branch conduction defect. He has had an echocardiogram that was performed on 02/25/2020, technically difficult, ejection fraction 55%, systolic fraction wall motion was felt to be normal to the extent visualized, no significant valvular regurgitation, and PA pressure was only 18. His D-dimer at [facility] was less than 0.27. The patient's laboratory values here, white count is normal at 8.3, hemoglobin 16.6, and platelet count of 362. His blood sugar most recently 233. Sodium 135, potassium 4.0, chloride 102, bicarb 26, BUN of 18, creatinine 0.8. His 2 sets of cardiac enzymes here have been 0.00 and 0.00. Liver function tests are normal. ASSESSMENT AND PLAN: 1. Shortness of breath. 2. Orthostatic tachycardia. 3. Chest pain. 4. Diabetes mellitus, poorly controlled. 5. Obesity. At the present time, it sounds like he may have some orthostatic tachycardia. His blood pressure did drop on standing on orthostatic vitals checked from 130's to 112, indicating at least degree of volume depletion. His heart rate also went from 112 to 140. So, I recommended the patient undergo volume repletion. His echocardiogram did not show any significant abnormalities. His D-dimer was normal. Therefore, unlikely that he has had deep venous thrombosis or pulmonary emboli. His cardiac enzymes are all normal. His EKG is suggestive of right bundle-branch conduction defect that may be chronic. I have not been able to find any other records. However, I suspect according to the patient that his chronically uncontrolled diabetes probably led to volume depletion. His last A1c here from 02/25/2020 was 10.7. He indicates when he runs out of medication, he has a hard time getting them again, so his blood sugar rises up until he gets his next dose of his diabetic medications. In either case, there are no cardiographic abnormalities suggest that the patient has a coronary syndrome. He has had a cardiac catheterization 5 years ago that showed according to at least himself did not show any significant disease or no disease. His symptoms however at this point are not suggestive of a coronary syndrome. Because of his persistent tachycardia, I would recommend volume repletion before he is discharged home and he should have a thyroid-stimulating hormone added to his blood draw to make sure he is not hyperthyroid. His LDL cholesterol is significantly elevated at 196. In the face of diabetes, he should be probably on some statins and he may need to be monitored long-term for his hyperlipidemia in the future. He should be followed halfway the importance of compliance with medications including diabetic medication and statins were fully discussed with the patient and followup recommendations were provided. Dr. Hendrickson, thank you for allowing me to participate in the care of this patient. Jorje Bowen M.D. DR: CHATO JOB#: [id number] CC:
--- NOTE | 2020-02-27 16:34 | Internal Med Progress Note ---
Subjective Date of Service: Feb 27, 2020 Physician Name NaliniJordon Attending Physician Hector Hendrickson MD Current Medications Medications (Trade) Dose Ordered Sig/Sonny Route PRN Reason Start Time Stop Time Status Last Admin Dose Admin Acetaminophen (Tylenol) 650 mg Q6H PRN ORAL Mild Pain (Pain Scale 1-3) 02/25/20 03:30 03/26/20 03:29 Acetaminophen/ Hydrocodone Bitart ([place] 5/325) 1 tab Q6H PRN ORAL Moderate Pain (Pain Scale 4-6) 02/25/20 03:30 03/03/20 03:29 02/26/20 20:10 Atorvastatin Calcium (Lipitor) 20 mg BEDTIME ORAL 02/27/20 21:00 05/27/20 20:59 Dextrose (Dextrose 50%) 25 ml Q30M PRN IV Hypoglycemia 02/25/20 03:30 05/25/20 03:29 Dextrose (Dextrose 50%) 50 ml Q30M PRN IV Hypoglycemia 02/25/20 03:30 05/25/20 03:29 Diphenhydramine HCl (Benadryl) 25 mg Q4HR PRN IVP Itching 02/25/20 13:30 03/26/20 13:29 02/27/20 14:20 Glipizide (Glucotrol) 5 mg BIAC ORAL 02/27/20 06:30 03/28/20 06:29 02/27/20 06:44 Insulin Aspart (NovoLOG) BEFORE MEALS AND HS SUBQ 02/25/20 06:30 05/25/20 06:29 02/27/20 11:10 Losartan Potassium (Cozaar) 50 mg DAILY ORAL 02/25/20 09:00 03/26/20 08:59 02/27/20 08:13 Metformin HCl (Glucophage) 1,000 mg BID ORAL 02/25/20 09:00 03/26/20 08:59 02/27/20 08:13 Morphine Sulfate (Morphine Sulfate) 2 mg Q4H PRN IVP Severe Pain (Pain Scale 7-10) 02/25/20 03:30 03/03/20 03:29 02/27/20 05:53 Nitroglycerin (Ntg) 0.4 mg Q5M PRN SL Prn Chest Pain 02/25/20 03:30 03/26/20 03:29 Ondansetron HCl (Zofran) 4 mg Q6H PRN IVP Nausea & Vomiting 02/25/20 03:30 03/26/20 03:29 Sitagliptin Phosphate (Januvia) 100 mg ACBREAKFAST ORAL 02/27/20 06:30 03/28/20 06:29 02/27/20 06:43 Sodium Chloride 1,000 ml @ 250 mls/hr Q4H IV 02/27/20 14:00 03/28/20 13:59 02/27/20 14:00 Allergies: Coded Allergies: IBUPROFEN (Verified Allergy, Mild, HIVES, 02/25/20) KETOROLAC (Verified Allergy, Mild, HIVES, 02/25/20) NSAIDS (NON-STEROIDAL ANTI-INFLAMMA (Verified Allergy, Mild, HIVES, ) ROS Limited/Unobtainable: No Constitutional: Reports: no symptoms HEENT: Reports: no symptoms Cardiovascular: Reports: no symptoms Respiratory: Reports: shortness of breath Gastrointestinal/Abdominal: Reports: no symptoms Genitourinary: Reports: no symptoms Neurologic/Psychiatric: Reports: no symptoms Subjective 29 YO M admitted with chest pain and uncontrolled diabetes. Cover for Int [facility]- Dr Hendrickson Objective Last Vital Signs Date Time Temp Pulse Resp B/P (MAP) Pulse Ox O2 Delivery O2 Flow Rate FiO2 02/27/20 16:00 98.1 106 20 110/67 (81) 100 02/27/20 09:00 Room Air Laboratory Tests Test 02/26/20 16:33 02/26/20 19:59 02/27/20 05:00 02/27/20 05:03 POC Whole Blood Glucose 231 MG/DL (74-106) H 263 MG/DL (74-106) H Pending White Blood Count 8.3 K/UL (4.8-10.8) Red Blood Count 5.67 M/UL (4.70-6.10) Hemoglobin 16.6 G/DL (14.2-18.0) Hematocrit 49.7 % (42.0-52.0) Mean Corpuscular Volume 88 FL (80-99) Mean Corpuscular Hemoglobin 29.3 PG (27.0-31.0) Mean Corpuscular Hemoglobin Concent 33.5 G/DL (32.0-36.0) Red Cell Distribution Width 10.8 % (11.6-14.8) L Platelet Count 262 K/UL (150-450) Mean Platelet Volume 6.3 FL (6.5-10.1) L Neutrophils (%) (Auto) 49.5 % (45.0-75.0) Lymphocytes (%) (Auto) 42.6 % (20.0-45.0) Monocytes (%) (Auto) 5.4 % (1.0-10.0) Eosinophils (%) (Auto) 1.7 % (0.0-3.0) Basophils (%) (Auto) 0.8 % (0.0-2.0) Sodium Level 135 MMOL/L (136-145) L Potassium Level 4.0 MMOL/L (3.5-5.1) Chloride Level 102 MMOL/L (98-107) Carbon Dioxide Level 26 MMOL/L (21-32) Anion Gap 7 mmol/L (5-15) Blood Urea Nitrogen 18 mg/dL (7-18) Creatinine 0.8 MG/DL (0.55-1.30) Estimat Glomerular Filtration Rate > 60 mL/min (>60) Glucose Level 233 MG/DL (74-106) H Calcium Level 9.3 MG/DL (8.5-10.1) Thyroid Stimulating Hormone (TSH) 1.930 uiU/mL (0.358-3.740) Test 02/27/20 10:59 02/27/20 16:10 POC Whole Blood Glucose 173 MG/DL (74-106) H 176 MG/DL (74-106) H Intake and Output 02/26/20 02/27/20 19:00 07:00 # Voids 2 # Bowel Movements 1 Objective PHYSICAL EXAMINATION: GENERAL: Patient is well-developed, well-nourished slightly obese, male, in no apparent distress. HEENT: Eyes, pupils are equal and responsive to light and accommodation. Extraocular movements are intact. NECK: Supple without lymphadenopathy. CHEST: Lungs are clear to auscultation bilaterally without wheezes or rales. CARDIOVASCULAR: Regular rate. S1, S2 are normal without murmurs, rubs, or gallops. ABDOMEN: Soft, nontender, nondistended. Positive bowel sounds. No evidence of hepatosplenomegaly. Currently, no rebound or guarding noted. EXTREMITIES: Negative for clubbing, cyanosis, or edema. RECTAL/GENITAL: Not performed. NEUROLOGICAL: Cranial nerves II through XII are grossly intact without focal deficits. Motor strength is 5/5 bilaterally. Deep tendon reflexes are 2+ plantar. Assessment/Plan Assessment/Plan ASSESSMENT: This is a 29-year-old male. 1. Chest pain. 2. Elevated troponin. 3. Uncontrolled Diabetes type 2. 4. Hypertension. 5. Morbid obesity. 6. Right bundle-branch block. TREATMENT: 1. Chest pain/elevated troponin/right bundle-branch block. A Cardiology consultation has been obtained with Dr. Jorje Bowen. Serial troponin levels will be performed. We will follow recommendations of Cardiology. 2. Uncontrolled Diabetes type 2. Endocrinology=Dr Daily. Continue metformin and glipizide. Start Januvia. Continue NovoLog sliding scale 3. Hypertension. Continue losartan as above. 4. Morbid obesity. 5. Right bundle-branch block. Jordon Gayle MD Feb 27, 2020 16:34
--- NOTE | 2020-02-27 19:28 | NUR ---
HAND-OFF: Report given to MARC Lima. Endorsed plan of care.
--- NOTE | 2020-02-27 19:38 | NUR ---
NURSE NOTES: Received report from MARC Shoemaker. Patient is awake lying supine; resting comfortably. No signs of acute distress noted; complains of pain. AOx4; able to make needs known. Ambulates independently with steady gait. Checked IV site, lines, and IV rate; patent and running. No erythema, bleeding, or infiltration noted. Urinal at bedside. Bed at lowest position, brakes on, siderails up x2. Call light within reach. Will continue to monitor.
[2020-02-27] MEDS ORDERED: Atorvastatin 20mg tab ORAL SCH (21:00)
--- NOTE | 2020-02-27 21:51 | NUR ---
NURSE NOTES: Notified Dr. Bowen of patient's orthostatic vital signs after infusion of 1L of NS. No new orders received at this time.
[2020-02-28] VITALS: BP 129/83
--- NOTE | 2020-02-28 03:25 | NUR ---
NURSE NOTES: Patient is asleep lying supine; resting comfortably. No signs of acute distress or pain noted at this time.
[2020-02-28] MEDS: DiphenhydrAMINE 50mg/ml Inj IVP PRN (05:56)
[2020-02-28] MEDS: GlipiZIDE 5mg tab ORAL SCH (05:56)
[2020-02-28] MEDS: NovoLOG Insulin Flexpen SUBQ SCH ×3 (05:56→16:24)
--- NOTE | 2020-02-28 06:00 | NUR ---
NURSE NOTES: Patient adamantly refusing EKG at this time and verbalizes desire to have it done during morning shift.
--- NOTE | 2020-02-28 06:20 | General Progress Note ---
Assessment/Plan Problem List: (1) Chest pain ICD Codes: R07.9 - Chest pain, unspecified SNOMED: 98085848 (2) History of diabetes mellitus ICD Codes: Z86.39 - Personal history of other endocrine, nutritional and metabolic disease SNOMED: 846142070 (3) History of hypertension ICD Codes: Z86.79 - Personal history of other diseases of the circulatory system SNOMED: 953504025 (4) Mild obesity ICD Codes: E66.9 - Obesity, unspecified SNOMED: 361045793 Assessment/Plan: continue Metformin 1000 mg bid continue Januvia 100 mg daily increase Glipizide to 10 mg bid no need for insulin after discharge Subjective Allergies: Coded Allergies: IBUPROFEN (Verified Allergy, Mild, HIVES, 02/25/20) KETOROLAC (Verified Allergy, Mild, HIVES, 02/25/20) NSAIDS (NON-STEROIDAL ANTI-INFLAMMA (Verified Allergy, Mild, HIVES, ) All Systems: reviewed and negative except above Subjective events noted glucose values has improved Item Value Date Time Bedside Blood Glucose 223 mg/dl H 02/28/20 0556 Bedside Blood Glucose 138 mg/dl H 02/27/20 2100 Bedside Blood Glucose 176 mg/dl H 02/27/20 1714 Bedside Blood Glucose 173 mg/dl H 02/27/20 1130 Bedside Blood Glucose 227 mg/dl H 02/27/20 0630 Objective Last 24 Hour Vital Signs Date Time Temp Pulse Resp B/P (MAP) Pulse Ox O2 Delivery O2 Flow Rate FiO2 02/28/20 04:00 83 02/28/20 00:00 83 02/28/20 00:00 97.7 87 18 129/83 (98) 97 02/27/20 21:10 102 125/93 (104) 02/27/20 21:05 101 149/91 (110) 02/27/20 21:00 89 122/73 (89) 02/27/20 21:00 Room Air 02/27/20 20:00 88 02/27/20 20:00 96.2 87 19 126/71 (89) 99 02/27/20 16:00 105 02/27/20 16:00 98.1 106 20 110/67 (81) 100 02/27/20 13:10 141 112/75 (87) 02/27/20 13:05 130 136/86 (103) 02/27/20 13:00 117 135/73 (93) 02/27/20 12:00 97.9 109 20 134/87 (103) 98 02/27/20 12:00 106 02/27/20 09:00 Room Air 02/27/20 08:13 134/77 02/27/20 08:00 79 02/27/20 08:00 97.5 82 20 134/77 (96) 100 Intake and Output 02/27/20 02/28/20 19:00 07:00 Intake Total 700 ml 200 ml Balance 700 ml 200 ml IV Total 700 ml 200 ml # Voids 2 Laboratory Tests 02/27/20 10:59: POC Whole Blood Glucose 173H 02/27/20 16:10: POC Whole Blood Glucose 176H 02/28/20 05:55: POC Whole Blood Glucose 223H Height (Feet): 5 Height (Inches): 9.00 Weight (Pounds): 253 General Appearance: no apparent distress Neck: normal alignment Cardiovascular: normal rate Respiratory/Chest: lungs clear Abdomen: normal bowel sounds Edema: no edema noted Arm (L), no edema noted Arm (R), no edema noted Leg (L), no edema noted Leg (R), no edema noted Pedal (L), no edema noted Pedal (R), no edema noted Generalized Objective Current Medications Medications (Trade) Dose Ordered Sig/Sonny Route PRN Reason Start Time Stop Time Status Last Admin Dose Admin Acetaminophen (Tylenol) 650 mg Q6H PRN ORAL Mild Pain (Pain Scale 1-3) 02/25/20 03:30 03/26/20 03:29 Acetaminophen/ Hydrocodone Bitart ([place] 5/325) 1 tab Q6H PRN ORAL Moderate Pain (Pain Scale 4-6) 02/25/20 03:30 03/03/20 03:29 02/26/20 20:10 Atorvastatin Calcium (Lipitor) 20 mg BEDTIME ORAL 02/27/20 21:00 05/27/20 20:59 02/27/20 21:10 Dextrose (Dextrose 50%) 25 ml Q30M PRN IV Hypoglycemia 02/25/20 03:30 05/25/20 03:29 Dextrose (Dextrose 50%) 50 ml Q30M PRN IV Hypoglycemia 02/25/20 03:30 05/25/20 03:29 Diphenhydramine HCl (Benadryl) 25 mg Q4HR PRN IVP Itching 02/25/20 13:30 03/26/20 13:29 02/28/20 05:56 Glipizide (Glucotrol) 5 mg BIAC ORAL 02/27/20 06:30 03/28/20 06:29 02/28/20 05:56 Insulin Aspart (NovoLOG) BEFORE MEALS AND HS SUBQ 02/25/20 06:30 05/25/20 06:29 02/28/20 05:56 Losartan Potassium (Cozaar) 50 mg DAILY ORAL 02/25/20 09:00 03/26/20 08:59 02/27/20 08:13 Metformin HCl (Glucophage) 1,000 mg BID ORAL 02/25/20 09:00 03/26/20 08:59 02/27/20 17:08 Morphine Sulfate (Morphine Sulfate) 2 mg Q4H PRN IVP Severe Pain (Pain Scale 7-10) 02/25/20 03:30 03/03/20 03:29 02/27/20 21:10 Nitroglycerin (Ntg) 0.4 mg Q5M PRN SL Prn Chest Pain 02/25/20 03:30 03/26/20 03:29 Ondansetron HCl (Zofran) 4 mg Q6H PRN IVP Nausea & Vomiting 02/25/20 03:30 03/26/20 03:29 Sitagliptin Phosphate (Januvia) 100 mg ACBREAKFAST ORAL 02/27/20 06:30 03/28/20 06:29 02/28/20 05:56 Bala Daily MD Feb 28, 2020 06:20
[2020-02-28] MEDS ORDERED: GlipiZIDE 5mg tab ORAL SCH ×2 (06:30→16:30)
[2020-02-28 07:17] LABS: ANION GAP 10 mmol/L (5-15); BLOOD UREA NITROGEN 13 mg/dL (7-18); CALCIUM 9.1 MG/DL (8.5-10.1); CARBON DIOXIDE 23 MMOL/L (21-32); CHLORIDE 101 MMOL/L (98-107); CREATININE 0.8 MG/DL (0.55-1.30); POTASSIUM 3.9 MMOL/L (3.5-5.1); SODIUM 134 MMOL/L (136-145)
[2020-02-28 07:22] LABS: EOSINOPHILS % (AUTO) 1.3 % (0.0-3.0); HEMATOCRIT 48.5 % (42.0-52.0); HEMOGLOBIN 16.4 G/DL (14.2-18.0); LYMPHOCYTES % (AUTO) 41.8 % (20.0-45.0); MEAN CORPUSCULAR VOLUME 88 FL (80-99); MONOCYTES % (AUTO) 6.1 % (1.0-10.0); NEUTROPHILS % (AUTO) 49.7 % (45.0-75.0); PLATELET COUNT 278 K/UL (150-450); RED BLOOD COUNT 5.51 M/UL (4.70-6.10); RED CELL DISTRIBUTION WIDTH 11.2 % (11.6-14.8); WHITE BLOOD COUNT 8.7 K/UL (4.8-10.8)
--- NOTE | 2020-02-28 07:27 | NUR ---
HAND-OFF: Report given to MARC Zhang. Patient is asleep lying right lateral recumbent; resting comfortably. In stable condition.
--- NOTE | 2020-02-28 07:39 | NUR ---
NURSE NOTES: Received patient in bed asleep. No SOB or acute distress. IV line intact. HOB elevated. Bed locked in lowest position. Call light within reach. Will continue plan of care.
[2020-02-28 08:00] VITALS: BP 127/76
--- NOTE | 2020-02-28 08:02 | NUR ---
NURSE NOTES: Patient refused EKG for now, said wanted to be left alone. Will attempt again later.
[2020-02-28] MEDS: metFORMIN 500mg tab ORAL SCH ×2 (08:14→17:59)
[2020-02-28] MEDS: Losartan 50mg tab ORAL SCH (08:14)
[2020-02-28] MEDS: Morphine Sulfate 2mg/ml Inj(IV/IM USE ONLY) IVP PRN (08:15)
--- NOTE | 2020-02-28 10:30 | Pulmonology Progress Note ---
Subjective ROS Limited/Unobtainable: No Allergies: Coded Allergies: IBUPROFEN (Verified Allergy, Mild, HIVES, 02/25/20) KETOROLAC (Verified Allergy, Mild, HIVES, 02/25/20) NSAIDS (NON-STEROIDAL ANTI-INFLAMMA (Verified Allergy, Mild, HIVES, ) All Systems: reviewed and negative except above Subjective no CP, but some discomfort in chest area pulse ox stable on RA remains afebrile c/o SOB persistent Objective Last 24 Hour Vital Signs Date Time Temp Pulse Resp B/P (MAP) Pulse Ox O2 Delivery O2 Flow Rate FiO2 02/28/20 09:00 Room Air 02/28/20 08:14 127/76 02/28/20 08:00 83 02/28/20 08:00 96.8 18 127/76 (93) 83 02/28/20 04:00 83 02/28/20 00:00 83 02/28/20 00:00 97.7 87 18 129/83 (98) 97 02/27/20 21:10 102 125/93 (104) 02/27/20 21:05 101 149/91 (110) 02/27/20 21:00 89 122/73 (89) 02/27/20 21:00 Room Air 02/27/20 20:00 88 02/27/20 20:00 96.2 87 19 126/71 (89) 99 02/27/20 16:00 105 02/27/20 16:00 98.1 106 20 110/67 (81) 100 02/27/20 13:10 141 112/75 (87) 02/27/20 13:05 130 136/86 (103) 02/27/20 13:00 117 135/73 (93) 02/27/20 12:00 97.9 109 20 134/87 (103) 98 02/27/20 12:00 106 Intake and Output 02/27/20 02/28/20 19:00 07:00 Intake Total 700 ml 550 ml Balance 700 ml 550 ml Intake Oral 350 ml IV Total 700 ml 200 ml # Voids 2 2 General Appearance: other - young obese male in NAD HEENT: normocephalic, atraumatic, anicteric, mucous membranes moist, PERRL Respiratory: lungs clear, no respiratory distress, no accessory muscle use Cardiovascular: normal rate, regular rhythm Abdomen: soft, non tender - obese Extremities: no edema Skin: no lesions, no ulcers Neurologic: park interpreter II-XII grossly normal, no motor/sensory deficits, alert, oriented x 3, responsive Musculoskeletal: normal muscle bulk Laboratory Tests 02/27/20 10:59: POC Whole Blood Glucose 173H 02/27/20 16:10: POC Whole Blood Glucose 176H 02/28/20 05:55: POC Whole Blood Glucose 223H 02/28/20 06:05: White Blood Count 8.7, Red Blood Count 5.51, Hemoglobin 16.4, Hematocrit 48.5, Mean Corpuscular Volume 88, Mean Corpuscular Hemoglobin 29.8, Mean Corpuscular Hemoglobin Concent 33.8, Red Cell Distribution Width 11.2L, Platelet Count 278, Mean Platelet Volume 6.4L, Neutrophils (%) (Auto) 49.7, Lymphocytes (%) (Auto) 41.8, Monocytes (%) (Auto) 6.1, Eosinophils (%) (Auto) 1.3, Basophils (%) (Auto ) 1.0, Sodium Level 134L, Potassium Level 3.9, Chloride Level 101, Carbon Dioxide Level 23, Anion Gap 10, Blood Urea Nitrogen 13, Creatinine 0.8, Estimat Glomerular Filtration Rate > 60, Glucose Level 214H, Calcium Level 9.1 Current Medications Medications (Trade) Dose Ordered Sig/Sonny Route PRN Reason Start Time Stop Time Status Last Admin Dose Admin Acetaminophen (Tylenol) 650 mg Q6H PRN ORAL Mild Pain (Pain Scale 1-3) 02/25/20 03:30 03/26/20 03:29 Acetaminophen/ Hydrocodone Bitart ([place] 5/325) 1 tab Q6H PRN ORAL Moderate Pain (Pain Scale 4-6) 02/25/20 03:30 03/03/20 03:29 02/26/20 20:10 Atorvastatin Calcium (Lipitor) 20 mg BEDTIME ORAL 02/27/20 21:00 05/27/20 20:59 02/27/20 21:10 Dextrose (Dextrose 50%) 25 ml Q30M PRN IV Hypoglycemia 02/25/20 03:30 05/25/20 03:29 Dextrose (Dextrose 50%) 50 ml Q30M PRN IV Hypoglycemia 02/25/20 03:30 05/25/20 03:29 Diphenhydramine HCl (Benadryl) 25 mg Q4HR PRN IVP Itching 02/25/20 13:30 03/26/20 13:29 02/28/20 05:56 Glipizide (Glucotrol) 10 mg BIAC ORAL 02/28/20 16:30 03/29/20 16:29 Insulin Aspart (NovoLOG) BEFORE MEALS AND HS SUBQ 02/25/20 06:30 05/25/20 06:29 02/28/20 05:56 Losartan Potassium (Cozaar) 50 mg DAILY ORAL 02/25/20 09:00 03/26/20 08:59 02/28/20 08:14 Metformin HCl (Glucophage) 1,000 mg BID ORAL 02/25/20 09:00 03/26/20 08:59 02/28/20 08:14 Morphine Sulfate (Morphine Sulfate) 2 mg Q4H PRN IVP Severe Pain (Pain Scale 7-10) 02/25/20 03:30 03/03/20 03:29 02/28/20 08:15 Nitroglycerin (Ntg) 0.4 mg Q5M PRN SL Prn Chest Pain 02/25/20 03:30 03/26/20 03:29 Ondansetron HCl (Zofran) 4 mg Q6H PRN IVP Nausea & Vomiting 02/25/20 03:30 03/26/20 03:29 Sitagliptin Phosphate (Januvia) 100 mg ACBREAKFAST ORAL 02/27/20 06:30 03/28/20 06:29 02/28/20 05:56 Assessment/Plan Assessment/Plan ASSESSMENT CP SOB r/o PE Elevated troponin -resolved Right BBB HTN DM OOC Morbid obesity Probably DEEPTI PLAN OF CARE tele [facility] with pEF 55%, no evidence of WMA to the extent visualized no LVH cardio eval appreciated DVT prophylaxis d dimer at [facility], however persistent SOB will do stat CTA chest supplemental O2 PRN to keep sat above 92 % BP management with ARB BS management with Januvia , glipizide and SSI diabetic diet and diabetic teaching hemoglobin A1c 10.7 not at goal optimize treatment and encourage compliance case discussed and evaluated by supervising physician Karley Nguyen BROILER MANAGER Feb 28, 2020 10:30
[2020-02-28] MEDS ORDERED: Omnipaque 350 100ml vial INJ PRN (10:45)
--- NOTE | 2020-02-28 11:00 | NUR ---
NURSE NOTES: EKG done, placed in chart.
[2020-02-28] MEDS ORDERED: JANUVIA100 MG ORAL (11:01)
[2020-02-28] MEDS ORDERED: GLIPIZIDE5 MG ORAL (11:01)
--- NOTE | 2020-02-28 11:10 | Internal Med Progress Note ---
Subjective Date of Service: Feb 28, 2020 Physician Name Jordon Gayle Attending Physician Hector Hendrickson MD Current Medications Medications (Trade) Dose Ordered Sig/Sonny Route PRN Reason Start Time Stop Time Status Last Admin Dose Admin Acetaminophen (Tylenol) 650 mg Q6H PRN ORAL Mild Pain (Pain Scale 1-3) 02/25/20 03:30 03/26/20 03:29 Acetaminophen/ Hydrocodone Bitart ([place] 5/325) 1 tab Q6H PRN ORAL Moderate Pain (Pain Scale 4-6) 02/25/20 03:30 03/03/20 03:29 02/26/20 20:10 Atorvastatin Calcium (Lipitor) 20 mg BEDTIME ORAL 02/27/20 21:00 05/27/20 20:59 02/27/20 21:10 Dextrose (Dextrose 50%) 25 ml Q30M PRN IV Hypoglycemia 02/25/20 03:30 05/25/20 03:29 Dextrose (Dextrose 50%) 50 ml Q30M PRN IV Hypoglycemia 02/25/20 03:30 05/25/20 03:29 Diphenhydramine HCl (Benadryl) 25 mg Q4HR PRN IVP Itching 02/25/20 13:30 03/26/20 13:29 02/28/20 05:56 Glipizide (Glucotrol) 10 mg BIAC ORAL 02/28/20 16:30 03/29/20 16:29 Insulin Aspart (NovoLOG) BEFORE MEALS AND HS SUBQ 02/25/20 06:30 05/25/20 06:29 02/28/20 05:56 Iohexol (Omnipaque 350 100ml) 100 ml NOW PRN INJ Radiology Procedure 02/28/20 10:45 03/01/20 10:31 Losartan Potassium (Cozaar) 50 mg DAILY ORAL 02/25/20 09:00 03/26/20 08:59 02/28/20 08:14 Metformin HCl (Glucophage) 1,000 mg BID ORAL 02/25/20 09:00 03/26/20 08:59 02/28/20 08:14 Morphine Sulfate (Morphine Sulfate) 2 mg Q4H PRN IVP Severe Pain (Pain Scale 7-10) 02/25/20 03:30 03/03/20 03:29 02/28/20 08:15 Nitroglycerin (Ntg) 0.4 mg Q5M PRN SL Prn Chest Pain 02/25/20 03:30 03/26/20 03:29 Ondansetron HCl (Zofran) 4 mg Q6H PRN IVP Nausea & Vomiting 02/25/20 03:30 03/26/20 03:29 Sitagliptin Phosphate (Januvia) 100 mg ACBREAKFAST ORAL 02/27/20 06:30 03/28/20 06:29 02/28/20 05:56 Allergies: Coded Allergies: IBUPROFEN (Verified Allergy, Mild, HIVES, 02/25/20) KETOROLAC (Verified Allergy, Mild, HIVES, 02/25/20) NSAIDS (NON-STEROIDAL ANTI-INFLAMMA (Verified Allergy, Mild, HIVES, ) ROS Limited/Unobtainable: No Constitutional: Reports: no symptoms HEENT: Reports: no symptoms Cardiovascular: Reports: no symptoms Respiratory: Reports: shortness of breath Gastrointestinal/Abdominal: Reports: no symptoms Genitourinary: Reports: no symptoms Neurologic/Psychiatric: Reports: no symptoms Subjective 29 YO M admitted with chest pain and uncontrolled diabetes. Cover for Int Med- Dr Hendrickson. CT angio ordered by pulmonary Objective Last Vital Signs Date Time Temp Pulse Resp B/P (MAP) Pulse Ox O2 Delivery O2 Flow Rate FiO2 02/28/20 09:00 Room Air 02/28/20 08:14 127/76 02/28/20 08:00 83 02/28/20 08:00 96.8 18 83 Laboratory Tests Test 02/27/20 16:10 02/28/20 05:55 02/28/20 06:05 POC Whole Blood Glucose 176 MG/DL (74-106) H 223 MG/DL (74-106) H White Blood Count 8.7 K/UL (4.8-10.8) Red Blood Count 5.51 M/UL (4.70-6.10) Hemoglobin 16.4 G/DL (14.2-18.0) Hematocrit 48.5 % (42.0-52.0) Mean Corpuscular Volume 88 FL (80-99) Mean Corpuscular Hemoglobin 29.8 PG (27.0-31.0) Mean Corpuscular Hemoglobin Concent 33.8 G/DL (32.0-36.0) Red Cell Distribution Width 11.2 % (11.6-14.8) L Platelet Count 278 K/UL (150-450) Mean Platelet Volume 6.4 FL (6.5-10.1) L Neutrophils (%) (Auto) 49.7 % (45.0-75.0) Lymphocytes (%) (Auto) 41.8 % (20.0-45.0) Monocytes (%) (Auto) 6.1 % (1.0-10.0) Eosinophils (%) (Auto) 1.3 % (0.0-3.0) Basophils (%) (Auto) 1.0 % (0.0-2.0) Sodium Level 134 MMOL/L (136-145) L Potassium Level 3.9 MMOL/L (3.5-5.1) Chloride Level 101 MMOL/L (98-107) Carbon Dioxide Level 23 MMOL/L (21-32) Anion Gap 10 mmol/L (5-15) Blood Urea Nitrogen 13 mg/dL (7-18) Creatinine 0.8 MG/DL (0.55-1.30) Estimat Glomerular Filtration Rate > 60 mL/min (>60) Glucose Level 214 MG/DL (74-106) H Calcium Level 9.1 MG/DL (8.5-10.1) Intake and Output 02/27/20 02/28/20 19:00 07:00 Intake Total 700 ml 550 ml Balance 700 ml 550 ml Intake Oral 350 ml IV Total 700 ml 200 ml # Voids 2 2 Objective PHYSICAL EXAMINATION: GENERAL: Patient is well-developed, well-nourished slightly obese, male, in no apparent distress. HEENT: Eyes, pupils are equal and responsive to light and accommodation. Extraocular movements are intact. NECK: Supple without lymphadenopathy. CHEST: Lungs are clear to auscultation bilaterally without wheezes or rales. CARDIOVASCULAR: Regular rate. S1, S2 are normal without murmurs, rubs, or gallops. ABDOMEN: Soft, nontender, nondistended. Positive bowel sounds. No evidence of hepatosplenomegaly. Currently, no rebound or guarding noted. EXTREMITIES: Negative for clubbing, cyanosis, or edema. RECTAL/GENITAL: Not performed. NEUROLOGICAL: Cranial nerves II through XII are grossly intact without focal deficits. Motor strength is 5/5 bilaterally. Deep tendon reflexes are 2+ plantar. Assessment/Plan Assessment/Plan ASSESSMENT: This is a 29-year-old male. 1. Chest pain. 2. Elevated troponin. 3. Uncontrolled Diabetes type 2. 4. Hypertension. 5. Morbid obesity. 6. Right bundle-branch block. TREATMENT: 1. Chest pain/elevated troponin/right bundle-branch block. A Cardiology consultation has been obtained with Dr. Jorje Bowen. Serial troponin levels will be performed. We will follow recommendations of Cardiology. 2. Uncontrolled Diabetes type 2. Endocrinology=Dr Daily. Continue metformin and glipizide. Start Januvia. Continue NovoLog sliding scale 3. Hypertension. Continue losartan as above. 4. Morbid obesity. 5. Right bundle-branch block. 6. Discharge home today after Stat CT angio chest Jordon Gayle MD Feb 28, 2020 11:10
--- NOTE | 2020-02-28 11:58 | NUR ---
NURSE NOTES: Informed Edward of CT scan that patient took metformin this morning. He said it's still ok to do CTA, and that metformin is not a contraindication anymore. Made Edward aware that patient is still for IV insertion. Previous attempts done but failed, charge nurse aware. Will try again.
[2020-02-28 12:00] VITALS: BP 132/82
--- NOTE | 2020-02-28 12:06 | NUR ---
NURSE NOTES: IV line inserted to left forearm g20. Patient allergic to lobster. He also had a history of developing "itchy bubbles" on his hands after getting contrast dye. CT scan YARITZA informed, and said they can still do CTA if patient is given benadryl before and after the procedure. Karley Nguyen NP informed, also aware that CTA can be done even when patient took metformin this morning. Awaiting orders from Karley VILLAR for benadryl.
[2020-02-28] MEDS ORDERED: DiphenhydrAMINE 50mg/ml Inj IVP SCH ×2 (12:41→12:45)
[2020-02-28] MEDS ORDERED: Solu-MEDROL 40mg Inj IVP SCH (12:45)
--- NOTE | 2020-02-28 13:39 | NUR ---
NURSE NOTES: Patient transported down for procedure via wheelchair.
--- NOTE | 2020-02-28 14:46 | NUR ---
CASE MANAGEMENT:REVIEW 02/27/20 SI: CHEST PAIN. UNCONTROLLED DM HTN. RBBB 96.8 83 18 127/76 85% ON RA NA-134 GLUCOSE+214 IS: GLIPIZIDE PO BID AC IV SOLUMEDROL X1 IV BENADRYL X1 LIPITOR PO QHS JANUVIA PO QAM COZAAR PO QD METFORMIN PO BID SSI AC+HS : TELEMETRY STATUS DCP: FROM HOME PLAN: REFUSED EKG TWICE DISCHARGE HOME TODAY AFTER CT ANGIO OF THE CHEST
--- NOTE | 2020-02-28 14:57 | NUR ---
INSURANCE CLINCALS AND REVIEW FAXED TO [facility] ATT: TYRON T: [phone] [id number] F: [phone] REF#[id number]
[2020-02-28 15:30] VITALS: BP 115/62
--- NOTE | 2020-02-28 15:53 | Diagnostic Imaging Report ---
ndication: Shortness of breath and chest discomfort Technique: IV administration nonionic contrast. Spiral acquisitions obtained from the lung bases to the lung apices. Multiplanar and 3-D reconstructions were generated. Total dose length product 496 mGycm. CTDIvol(s) 53 mGy. Dose reduction achieved using automated exposure control Comparison: none Findings: Pulmonary arteries are adequately opacified. No intraluminal filling defects or other findings to suggest acute pulmonary embolus are demonstrated. Normal caliber pulmonary arteries. No evidence of right ventricular dilatation. No evidence of thoracic aortic aneurysm or dissection. Normal caliber and branching anatomy of the great neck vessels. The included proximal abdominal visceral vessels appear unremarkable. In the inferior right upper lobe, there is a calcified granuloma. There is a small focal area of hyperlucency surrounding the granuloma. There is some atelectasis at the right lung base. Lungs and pleural spaces are otherwise clear. No infiltrates, masses, or effusions are demonstrated. There is a right hilar node calcification noted. No mediastinal or hilar mass or adenopathy. The heart size is normal. No pericardial effusion. The included bottom half of the thyroid is unremarkable. Included upper abdomen demonstrates marked low-attenuation of the liver. Impression: No evidence of acute pulmonary embolus or other thoracic vascular pathology No acute pulmonary abnormality No evidence of old granulomatous disease in the right upper lobe and right hilum Fatty liver The CT scanner at [facility] is accredited by the [employer] and the scans are performed using protocols designed to limit radiation exposure to as low as reasonably achievable to attain images of sufficient resolution adequate for diagnostic evaluation.
--- NOTE | 2020-02-28 16:34 | NUR ---
NURSE NOTES: CTA result in, notified Karley Nguyen, awaiting response.
--- NOTE | 2020-02-28 17:12 | NUR ---
HAND-OFF: Report given to Brigitte TRAN. Endorsed that patient is clear for discharge as per Karley Nguyen. EKG in chart.
--- NOTE | 2020-02-28 17:21 | NUR ---
NURSE NOTES: Received report from MARC Zhang. RN endorsed that pt. is cleared for discharge by Nguyen/TYPESETTING SUPERVISOR. TYPESETTING SUPERVISOR recommends outpatient sleep study. Patient AAO x4, no acute distress. Plan is to discharge pt. home. Received update from Dr. Bowen that pt. is clear for discharge and recommends pt. follow-up with MD in 2 weeks. Left voicemail for Dr. Gayle, awaiting call back.
--- NOTE | 2020-02-28 18:08 | NUR ---
NURSE NOTES: Received TORB from Dr. Gayle for discharge to home.
--- NOTE | 2020-02-28 18:54 | NUR ---
NURSE NOTES: Discharge education provided. Discharge packet and belongings list signed, copies of prescriptions placed in chart. Discharge checklist signed and given to SAMIR Dawson. ID band, IV x2, and tele box removed.
--- NOTE | 2020-02-28 19:17 | NUR ---
NURSE NOTES: Assisted pt. off the floor. Pt. in stable condition. Pt. able to ambulate steady. Belongings and d/c paperwork in hand.
--- NOTE | 2020-02-29 14:01 | Discharge Summary ---
Discharge Summary Discharge Summary _ DATE OF ADMISSION: 02/24/2020 DATE OF DISCHARGE: 02/28/2020 DISCHARGED BY: Dr. Hendrickson REASON FOR ADMISSION: 29 years old male with past medical history of hypertension and diabetes mellitus, diagnosed at age of 26, obesity, initially presented to [facility] ED with complaint of chest pain. Patient apparently started to have chest pressure while he was eating lunch. Chest pain radiated to his left shoulder and left jaw . Patient's girlfriend called paramedics . Manager Office Services initiated transfer patient to [facility] emergency department. Patient apparently had a similar episode few years ago at 2014 for which he underwent cardiac catheterization . That catheterization did not show any significant disease. Patient had elevated troponin 0 0.15 at the [facility] ER. EKG showed normal sinus rhythm with right bundle branch block. After initial evaluation patient was transferred to [facility] for insurance purposes. Patient admitted for chest pain rule , out acute coronary syndrome CONSULTANTS: physical therapy resident Dr. Bowen pulmonary Dr. Carpenter [facility]SE: Patient admitted to monitored floor. Elevator Constructor and physical therapy resident followed. Serial troponin at [facility] were negative. EKG revealed no acute ischemic changes. Patient was ruled out for acute myocardial infarction. Echocardiogram revealed preserved ejection fraction of 55%. No evidence of wall motion abnormality to the extent visualized, no left ventricular hypertrophy. D-dimer at [facility] was negative, however patient had persistently complained of shortness of breath . Subsequently stat CTA of the chest was done, which revealed no evidence of acute pulmonary emboli or other thoracic vascular pathology. No acute pulmonary abnormality. Fatty liver noted Supplemental oxygen provided and titrated to keep pulse oximetry above 92%. Pulse oximetry remained stable on room air. Due to strong suspicion for obstructive sleep apnea, patient was advised to have a sleep study as outpatient. Blood pressure was managed with ARB . Per physical therapy resident, patient had positive orthostatic changes and he recommended volume repletion. P Chronically uncontrolled diabetes probably led to volume depletion. There was no cardiographic abnormality suggesting that the patient had a coronary syndrome. As mentioned above , patient had a cardiac catheterization few years ago , that did not show any significant disease. His symptoms at this point were not suggestive of coronary syndrome. Because of the persistent tachycardia, physical therapy resident recommended volume repletion , before he would be discharged home. LDL was significantly elevated at 196 . Patient should be started on the statin , which he preferred to be started by his primary care provider . Patient was educated on low-fat low-cholesterol diet and compliance with medication and diet. Patient was explained the importance of cholesterol management in view of his diabetes. Blood sugar was managed as per scheduler conveyor recommendations with metformin, Januvia, glipizide and sliding scale of insulin. Diabetic diet provided along with diabetic teaching. Hemoglobin A1c 10.7 , not at goal . Patient will need further optimization of anti-glycemic regimen as outpatient. Patient clinically stabilized and was ready for discharge home. FINAL DIAGNOSES: Chest pain Shortness of breath Elevated troponin -resolved Right bundle branch block Hypertension Orthostatic tachycardia Diabetes mellitus [id number] Obesity Probably obstructive sleep apnea Hyperlipidemia DISCHARGE MEDICATIONS: See Medication Reconciliation list. DISCHARGE INSTRUCTIONS: [Patient was discharged home. Follow-up with a primary care provider in 1 week. Patient was recommended outpatient sleep study. Patient was recommended to follow-up with a primary care provider in 1 week with referral to physical therapy resident as well as to optimize his blood sugar. I have been assigned to dictate discharge summary for this account. Karley Nguyen NP Feb 29, 2020 14:01
--- NOTE | 2020-02-29 16:14 | NUR ---
*-* INSURANCE *-* DISCHARGE SUMMARY HAS BEEN FAXED TO: [facility] Ref# [id number] CM: Pattie Dowell ph#[phone] ext [phone] fax#[phone]
--- NOTE | 2020-03-03 14:12 | Coder Physician Query ---
Clarification is required for compliance, coding accuracy, and to reflect severity of illness for this patient Dear Dr. 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 EKG revealed no acute ischemic changes. Patient was ruled out for acute myocardial infarction. Echocardiogram revealed preserved ejection fraction of 55%. No evidence of wall motion abnormality to the extent visualized, no left ventricular hypertrophy. D-dimer at [place] was negative, however patient had persistently complained of shortness of breath . Subsequently stat CTA of the chest was done, which revealed no evidence of acute pulmonary emboli or other thoracic vascular pathology. No acute pulmonary abnormality. 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 P Chronically uncontrolled diabetes probably led to volume depletion. There was no cardiographic abnormality suggesting that the patient had a coronary syndrome. FINAL DIAGNOSES: Chest pain Shortness of breath Elevated troponin -resolved Right bundle branch block, Hypertension, Orthostatic tachycardia Diabetes mellitus [id number] Please document the suspected etiology of Chest Pain: [] Acute Coronary Syndrome [] Pericarditis [] Anxiety [] Pneumonia [] Costochondritis [] Pneumothorax [] GERD/Esophagitis [] Pulmonary embolism [x] Other: Atypical chest pain [] Unable to determine Physician signature Date Please also document in your Progress Notes and/or Discharge Summary and indicate if the condition was present on admission. JOLLY
== END 2020-02-28 19:15 | disposition home or self-care (01) | DRG 313 ==
LOC: 2E 21:45
DX: R07.89 Other chest pain (principal); R74.8 Abnormal levels of other serum enzymes; I45.10 Unspecified right bundle-branch block; I10 Essential (primary) hypertension; E66.01 Morbid (severe) obesity due to excess calories; Z68.37 Body mass index [BMI] 37.0-37.9, adult; Z79.4 Long term (current) use of insulin; Z88.6 Allergy status to analgesic agent; K76.0 Fatty (change of) liver, not elsewhere classified; G47.33 Obstructive sleep apnea (adult) (pediatric); E78.5 Hyperlipidemia, unspecified; R00.0 Tachycardia, unspecified; E11.65 Type 2 diabetes mellitus with hyperglycemia
CPT/HCPCS: 36415; 71275; 80048; 80053; 80061; 82962; 83036; 83735; 84100; 84443; 84484; 85025; 85651; 93005; 93306; J1815